=== PATIENT | female | born 1995 | race Caucasian/White ===

== ENCOUNTER 2022-02-06 08:10 | Emergency (ER) | payer OTHER ==
[~2022-02-06] VITALS: Ht 170.2 cm; Wt 81.6 kg
== END 2022-02-06 12:21 | disposition home or self-care (01) ==
LOC: ER 08:10
DX: K52.9 Noninfective gastroenteritis and colitis, unspecified (principal); B34.9 Viral infection, unspecified; Z20.822 Contact with and (suspected) exposure to COVID-19